=== PATIENT | male | born 1985 | race Caucasian/White ===

== ENCOUNTER 2016-07-02 22:21 | Emergency (ER) | payer SELFPAY ==
[2016-12-19] MEDS ORDERED: NO MEDICATIONS (12:02)
== END 2016-07-02 22:29 | disposition home or self-care (01) ==
LOC: CFTX 22:21
DX: T23.102A Burn of first degree of left hand, unspecified site, initial encounter (principal); T23.101A Burn of first degree of right hand, unspecified site, initial encounter; F17.210 Nicotine dependence, cigarettes, uncomplicated; Z90.89 Acquired absence of other organs
CPT/HCPCS: 99282